=== PATIENT | female | born 2000 | race Hispanic/Latino ===

== ENCOUNTER 2023-12-29 07:25 | Inpatient (IN) | payer OTHER ==
[~2023-12-29] VITALS: Ht 165.1 cm; Wt 98.9 kg
--- NOTE | ~2023-12-29 | OR ---
[facility] [address] [place], [place] [address] Draft DATE OF OPERATION: 01/03/2024 SURGEON: Latanya Vizcaino MD MANAGER DATABASE: Uzair. PREOPERATIVE DIAGNOSES: Term , elective section, posterior low-lying placenta. POSTOPERATIVE DIAGNOSES: Term , elective section, posterior low-lying placenta, delivered. PROCEDURE: Primary section with low segment transverse uterine incision. ANESTHESIA: Spinal. ESTIMATED BLOOD LOSS: 600 mL. DRAINS: Elizondo catheter. INDICATIONS AND FINDINGS: The patient is a 23-year-old female 1, para 0, admitted at 39 and 3/7th weeks for primary section for a history of a low-lying placenta as well as maternal request. She was delivered of a little girl via lower segment transverse uterine incision from the LOT position with Apgars of 9 and 9 and weight of 7 pounds 12 ounces. There was a loose nuchal cord. The uterus, tubes, and ovaries appeared normal. The placenta was low-lying posterior, but not a complete previa. DESCRIPTION OF PROCEDURE: The patient was prepped and draped in the supine position. A Pfannenstiel skin incision was made and carried down through the fascia. The incision was extended laterally. The inferior and superior fascial flaps were then created. The muscles were bluntly divided and the peritoneum opened bluntly and the incision extended bluntly. The Sylvain retractor was placed. The uterine incision was made at the upper aspect of the peritoneal reflection. The incision was extended bluntly. Artificial rupture of PATIENT NAME: AGUSTIN GONZALEZ OPERATIVE REPORT DATE OF : [birth year] REPORT #: [id number] PHYSICIAN: LATANYA VIZCAINO MD PCP: NO PRIMARY CARE PHYSICIAN REPORT IS CONFIDENTIAL AND NOT TO BE RELEASED WITHOUT AUTHORIZATION [facility] [address] [place], [place] [address] Draft membranes was done with clear fluid seen. The baby was delivered with the above findings and handed off to the pediatric staff in attendance. The placenta was expressed and the uterus explored with a lap tape assuring no remaining fragments. The edges of the incision were identified and the uterus was closed in two layers. The first layer was a running locking stitch of 0 Monocryl and the second was a vertical imbricating stitch of 0 Monocryl. Abdomen was irrigated, inspected and good hemostasis was noted. The Sylvain retractor was removed and the peritoneum identified. The peritoneum was closed with a running suture of 3-0 Vicryl. The muscles were brought together with interrupted sutures of 0 Vicryl. Bleeding points on the muscles were controlled with cautery. A single [id number]-[id number] suture was required to control bleeding from one vessel. This layer was irrigated, inspected and good hemostasis was noted. The fascia was then closed from each angle to the midline with a running suture of 0 Vicryl. The subcu space was irrigated and bleeding points were controlled with cautery. The deep space was closed with running suture of 3-0 Vicryl. The skin was closed with sharon. All sponge and needle counts were correct. She tolerated the procedure well and was taken to the recovery room in good condition. Latanya Vizcaino MD PJW/MODL /[id number] Copies: ~ PATIENT NAME: AGUSTIN GONZALEZ [facility] OPERATIVE REPORT DATE OF : [birth year] REPORT #: [id number] PHYSICIAN: LATANYA VIZCAINO MD PCP: NO PRIMARY CARE PHYSICIAN REPORT IS CONFIDENTIAL AND NOT TO BE RELEASED WITHOUT AUTHORIZATION
[2024-01-03] MEDS ORDERED: LACTATED RINGER'S 1,000 ML IV SCH ×2 (05:00→08:19)
[2024-01-03] MEDS ORDERED: LACTATED RINGER'S 2,000 ML IV PRN (05:00)
[2024-01-03 05:21] VITALS: BP 122/83
[2024-01-03 06:10] LABS: HEMATOCRIT 36.3 % (35.0-50.0); HEMOGLOBIN 12.1 g/dL (12.0-18.0); MCHC 33.2 g/dl (30-36); MCV 93.2 fl (81-99); RBC 3.9 M/ul (4.3-5.7); RDW 14.5 (10.5-15.0)
[2024-01-03] MEDS ORDERED: SOD+POT BICARB/CITRIC ACID 2 EA TABLET.EFF PO SCH (06:19)
[2024-01-03] MEDS ORDERED: CEFAZOLIN SODIUM 2 GM/20 ML SYR IV SCH (06:19)
[2024-01-03] MEDS ORDERED: ondansetron HCL 4 MG/2 ML VIAL ONE (06:39)
[2024-01-03] MEDS ORDERED: OXYTOCIN 10 UNITS/ML VIAL ONE (06:39)
[2024-01-03] MEDS ORDERED: DEXAMETHASONE SOD PHOS 4 MG/ML VIAL ONE ×2 (06:39→07:29)
[2024-01-03] MEDS ORDERED: BUPIVACAINE 0.75% IN DEXTROSE 2 ML AMP ONE (06:41)
[2024-01-03] MEDS ORDERED: LIDOCAINE HCL 2% 5 ML SDV ONE (06:41)
[2024-01-03] MEDS ORDERED: MORPHINE SULFATE 1 MG/ML VIAL ONE (06:42)
[2024-01-03] MEDS ORDERED: LACTATED RINGER'S 1,000 ML IV ONE ×3 (06:44)
[2024-01-03] MEDS ORDERED: ePHEDrine sulfate 50 MG/ML AMP ONE (06:44)
[2024-01-03 06:50] LABS: ABO A; ANTIBODY SCREEN NEGATIVE; RH POSITIVE
[2024-01-03 07:07] LABS: AMPHETAMINES, URINE NEGATIVE (NEGATIVE); BARBITURATES, URINE NEGATIVE (NEGATIVE); BENZODIAZEPINE, URINE NEGATIVE (NEGATIVE); BUPRENORPHINE, URINE NEGATIVE (NEGATIVE); CANNABINOID, URINE NEGATIVE (NEGATIVE); COCAINE, URINE NEGATIVE (NEGATIVE); ECSTASY, URINE NEGATIVE (NEGATIVE); FENTANYL, URINE NEGATIVE (NEGATIVE); METHADONE, URINE NEGATIVE (NEGATIVE); OXYCODONE, URINE NEGATIVE (NEGATIVE); PHENCYCLIDINE, URINE NEGATIVE (NEGATIVE)
[2024-01-03] MEDS ORDERED: FAMOTIDINE 20 MG/ 2 ML VIAL ONE (07:21)
[2024-01-03] MEDS ORDERED: METOCLOPRAMIDE HCL 10 MG/2 ML SDV ONE (07:21)
[2024-01-03] MEDS ORDERED: Ropivacaine HCl 0.5% 30 ML VIAL ONE (07:41)
[2024-01-03] MEDS ORDERED: SODIUM CHLORIDE 0.9% 40 ML IV ONE (07:41)
[2024-01-03] MEDS ORDERED: PROMETHAZINE HCL 25 MG TAB PO PRN (08:15)
[2024-01-03] MEDS ORDERED: PROCHLORPERAZINE EDISYLATE 10 MG/2 ML VIAL IV PRN ×3 (08:15→11:15)
[2024-01-03] MEDS ORDERED: PROMETHAZINE HCL 25 MG SUPP PR PRN (08:15)
[2024-01-03] MEDS ORDERED: LIDOCAINE 2% VISCOUS 6 ML SYR TOP ONE (08:15)
[2024-01-03] MEDS ORDERED: ondansetron HCL 4 MG/2 ML VIAL IV PRN ×3 (08:15→11:15)
[2024-01-03] MEDS ORDERED: bisacodyL 10 MG SUPP PR PRN (08:15)
[2024-01-03] MEDS ORDERED: OXYCODONE HCL 5 MG TAB PO PRN (08:15)
[2024-01-03] MEDS ORDERED: METOCLOPRAMIDE HCL 10 MG/2 ML SDV IV PRN ×3 (08:15→11:15)
[2024-01-03] MEDS ORDERED: OXYTOCIN/0.9 % SODIUM CHLORIDE 500 ML IV SCH (08:15)
[2024-01-03 08:26] LABS: OPIATES, URINE NEGATIVE (NEGATIVE)
[2024-01-03] MEDS ORDERED: ACETAMINOPHEN 500 MG TAB PO SCH (08:30)
--- NOTE | 2024-01-03 08:34 | NUR ---
01/03/24 0834 Martin,Rachel 0821- PT ARRIVES TO [facility] ROOM #104. PT ALERT AND ORIENTED. PT REPORTS NO PAIN OR NAUSEA. PT HAS AN 18G IV TO THE RIGHT HAND THAT IS INFUSING LR WITH PITOCIN. SEE ANETHESIA BLUE SHEET. RESP EVEN AND UNLABORED. OXYGEN SAT MID TO HIGH 90'S ON RA. CLEAR YELLOW URINE IS DRAINING INTO THE BARRETO BAG. 0824- BABY TO RIGHT BREAST WITH ASSISTANCE FROM [facility] RN. PT'S SIGNIFICANT OTHER AT THE BEDSIDE. PT SAT UP SLIGHTLY IN BED. PT DENIES ANY DIZZINESS OR NAUSEA. 0831- PT SITTING UP MORE IN BED. PT DENIES ANY DIZZINESS OR NAUSEA.
[2024-01-03 08:59] VITALS: BP 129/65
[2024-01-03] MEDS ORDERED: SENNOSIDES/DOCUSATE 1 EA TAB PO SCH (09:00)
[2024-01-03] MEDS ORDERED: SIMETHICONE 125 MG TABLET CHEWABLE PO SCH (11:00)
[2024-01-03] MEDS ORDERED: KETOROLAC TROMETHAMINE 30 MG/ML VIAL IV PRN (11:15)
[2024-01-03] MEDS ORDERED: droPERidol 5 MG/2 ML VIAL IV PRN (11:15)
[2024-01-03] MEDS ORDERED: IBLOOD GLUCOSE TEST STRIP 1 EA TEST VI PRN (11:15)
[2024-01-03] MEDS ORDERED: fentaNYL citrate 50 MCG/ML SDV IV PRN (11:15)
[2024-01-03] MEDS ORDERED: MORPHINE SULFATE 10 MG/ML VIAL IV PRN (11:15)
[2024-01-03] MEDS ORDERED: diphenhydrAMINE HCL 25 MG CAP PO PRN (11:15)
[2024-01-03] MEDS ORDERED: diphenhydrAMINE HCL 50 MG/ML VIAL IV PRN (11:15)
[2024-01-03] MEDS ORDERED: NALOXONE HCL 0.4 MG SYR IV PRN ×2 (11:15)
[2024-01-03] MEDS ORDERED: MORPHINE SULFATE 4 MG/ML VIAL IV PRN (11:15)
[2024-01-03] MEDS ORDERED: KETOROLAC TROMETHAMINE 30 MG/ML VIAL IV SCH (14:00)
[2024-01-04 06:12] LABS: HEMATOCRIT 30.7 % (35.0-50.0); HEMOGLOBIN 10.3 g/dL (12.0-18.0); MCH 31.3 (27-36); MCHC 33.6 g/dl (30-36); MCV 93.3 fl (81-99); RBC 3.3 M/ul (4.3-5.7); RDW 14.1 (10.5-15.0)
[2024-01-04] MEDS ORDERED: CEFAZOLIN SODIUM 2 GM/20 ML SYR IV SCH (07:00)
[2024-01-04] MEDS ORDERED: SOD+POT BICARB/CITRIC ACID 2 EA TABLET.EFF PO SCH (07:00)
[2024-01-04] MEDS ORDERED: IBUPROFEN 800 MG TAB PO SCH ×2 (08:00→14:00)
--- NOTE | 2024-01-04 08:29 | PR ---
[facility] [address] [facility] [place], [place] [address] Signed PP Progress Notes Datetime Report Generated by CPN: 01/04/2024 08:29 SUBJECTIVE: [id number] Pain: Within Normal Limits Nausea/Vomiting: Denies Flatus: Yes Vital Signs: [id number] EXAM: Ongoing Cardiovascular: Normal Respiratory: Normal Abdomen/Uterus: Normal Lochia: Normal Vulva/Perineum: Normal Breasts: Normal CVA Tenderness: Normal Extremities: Normal IMPRESSION/PLAN/PROCEDURES: [id number] Impression: Normal Progression Plan: Continue Present Management Procedures: None Progress Notes: Patient reports that she is feeling really well today. Pain is well controlled. Catheter out, up to chair. Minimal lochia. Reports numbness and itching to incision. Reassured these are normal. Signing Physician: Abigail Dunne MD Copies: ~ *Electronically Signed* 01/04/24828 ABIGAIL DUNNE MD PATIENT NAME: AGUSTIN GONZALEZ PROGRESS NOTE DATE OF : [birth year] PHYSICIAN: ABIGAIL DUNNE MD RPT #: [id number] REPORT IS CONFIDENTIAL AND NOT TO BE RELEASED WITHOUT AUTHORIZATION
[2024-01-04] MEDS ORDERED: PROCHLORPERAZINE EDISYLATE 10 MG/2 ML VIAL IV PRN (11:15)
[2024-01-04] MEDS ORDERED: METOCLOPRAMIDE HCL 10 MG/2 ML SDV IV PRN (11:15)
[2024-01-04] MEDS ORDERED: ondansetron HCL 4 MG/2 ML VIAL IV PRN (11:15)
--- NOTE | 2024-01-05 07:40 | PR ---
[facility] [address] [facility] [place], [place] [address] Signed PP Progress Notes Datetime Report Generated by CPN: 01/05/2024 07:40 SUBJECTIVE: [id number] Pain: Within Normal Limits Nausea/Vomiting: Denies Flatus: Yes Bowel Movement: Yes Vital Signs: [id number] Vital Signs: Reviewed; Within Normal Limits EXAM: Ongoing Cardiovascular: Normal Respiratory: Normal Abdomen/Uterus: Abnormal Lochia: Normal Vulva/Perineum: Not Done Breasts: Not Done CVA Tenderness: Not Done Extremities: Normal Incision: Normal Progress: Normal Exam Comments: Abdomen with active BS. Fundus firm, NT @ U-2. IMPRESSION/PLAN/PROCEDURES: [id number] Impression: Normal Progression Plan: Remove Erich; Discharge Procedures: None Progress Notes: Doing well. She is ready for D/C. Signing Physician: Latanya Vizcaino MD Copies: ~ *Electronically Signed* 01/05/24739 LATANYA VIZCAINO MD PATIENT NAME: AGUSTIN GONZALEZ DHEERAJ PROGRESS NOTE DATE OF : [birth year] PHYSICIAN: LATANYA VIZCAINO MD RPT #: [id number] REPORT IS CONFIDENTIAL AND NOT TO BE RELEASED WITHOUT AUTHORIZATION
== END 2024-01-05 14:40 | disposition home or self-care (01) | DRG 788 ==
LOC: FBC 01-03 04:54
PROVIDERS: ADMIT Obstetrics & Gynecology; ATTEND Obstetrics & Gynecology
PROC: 10D00Z1 Extraction of Products of Conception, Low, Open Approach (ICD-10-PCS; principal; 2024-01-03 07:30)
DX: O44.43 Low lying placenta NOS or without hemorrhage, third trimester (principal); Z3A.39 39 weeks gestation of pregnancy; Z37.0 Single live birth; O69.81X0 Labor and delivery complicated by cord around neck, without compression, not applicable or unspecified
CPT/HCPCS: 01961; 36415; 64488; 76942; 80307; 85027; 86850; 86900; 86901; A9270; J0690; J0780; J1100; J1885; J2001; J2274; J2405; J2590; J2765; J2795; J7121